=== PATIENT | female | born 1995 | race Caucasian/White ===

== ENCOUNTER 2024-03-27 08:00 | Outpatient (CLI) | payer OTHER ==
[2024-03-27 18:24] LABS: BILIRUBIN,URINE NEGATIVE (NEGATIVE); GLUCOSE, URINE (UA) NEGATIVE (NEGATIVE); KETONES,URINE (UA) NEGATIVE (NEGATIVE); LEUKOCYTE ESTERASE, URINE NEGATIVE (NEGATIVE); NITRITE,URINE NEGATIVE (NEGATIVE); OCCULT BLOOD,URINE NEGATIVE (NEGATIVE); PROTEIN,URINE NEGATIVE (NEGATIVE); UROBILINOGEN,URINE 0.2 (NORMAL) E.U./dL (NORMAL)
[2024-03-27 18:31] LABS: CLARITY,URINE CLEAR (CLEAR)
[2024-03-27 18:43] LABS: BACTERIA,URINE Few /HPF (None Seen); RBC,URINE 0-5 /HPF (0-5); SQUAMOUS EPITHELIAL CELL,UR RARE Squamous (<= Few); WBC,URINE 0-3 /HPF (0-5)
== END 2024-03-27 23:59 | disposition home or self-care (01) ==
LOC: LAB.WC 08:00
PROVIDERS: ATTEND Obstetrics & Gynecology
DX: Z34.90 Encounter for supervision of normal pregnancy, unspecified, unspecified trimester (principal)
CPT/HCPCS: 81001; 87086

== ENCOUNTER 2024-04-09 17:11 | Outpatient (CLI) | payer OTHER ==
--- NOTE | 2024-04-10 23:22 | Ultrasound Report ---
PROCEDURE: OB 1st Trimester INDICATIONS: POSITIVE TEST OUTSIDE/PRIOR DATING DATA: Last menstrual period (LMP): 02/06/2024. LMP-based estimated date of delivery (KAYLEE): 11/12/2024. First dating scan (date and location): 04/09/2024. Estimated date of delivery (KAYLEE) from first dating scan: 11/12/2024. TECHNIQUE: Real-time scanning was performed of the fetus and maternal pelvic organs, with image documentation. COMPARISON: None. FINDINGS: Intrauterine gestational sac present. Embryo: Single living gestation with crown-rump length of 22.7 mm corresponding to 9 weeks 0 day +/- 6 day gestation. A normal yolk sac is seen. Heart rate: 167 bpm. Other: Thin flat simple subchorionic fluid collection measuring 2.0 x 0.7 x 3.5 cm encompassing less than 10% of the sac circumference. Measurement variability in dating: +/- 4 weeks by LMP, +/- 7 days by mean sac diameter (use before 6 weeks gestation if crown-rump length not able to be measured), +/- 5 days by crown-rump length (6-12 weeks gestation). Maternal organs: Ovaries appear within normal limits. The cervix is closed. IMPRESSION: Single living intrauterine with sonographic gestational age of 9 weeks, 0 days +/- 6 days. This concordant with clinical dates. Reviewed by: Lennie Wheeler MD on 04/10/2024 11:21 PM PDT Approved by: Lennie Wheeler MD on 04/10/2024 11:21 PM PDT Station ID: [id number]
== END 2024-04-09 17:12 | disposition home or self-care (01) ==
LOC: DI 17:11
PROVIDERS: ATTEND Obstetrics & Gynecology
DX: Z34.91 Encounter for supervision of normal pregnancy, unspecified, first trimester (principal)

== ENCOUNTER 2024-05-01 08:00 | Outpatient (CLI) | payer OTHER ==
[2024-05-01 22:28] LABS: CHLAMYDIA TRACHOMATIS DNA NEGATIVE (NEGATIVE); NEISSERIA GONORRHOEAE DNA NEGATIVE (NEGATIVE); TRICHOMONAS VAGINALIS DNA NEGATIVE (NEGATIVE)
== END 2024-05-01 23:59 | disposition home or self-care (01) ==
LOC: LAB.WC 08:00
PROVIDERS: ATTEND Obstetrics & Gynecology
DX: Z11.3 Encounter for screening for infections with a predominantly sexual mode of transmission (principal)
CPT/HCPCS: 87491; 87591; 87661

== ENCOUNTER 2024-05-04 10:47 | Outpatient (CLI) | payer OTHER ==
[2024-05-04 18:04] LABS: BASOPHILS % (AUTO) 0.5 %; EOSINOPHILS # (AUTO) 0.1 10^3/uL (0.0-0.7); EOSINOPHILS % (AUTO) 1.3 %; HCT - HEMATOCRIT 40.2 % (37.0-47.0); HGB - HEMOGLOBIN 13.1 g/dL (12.0-16.0); LYMPHOCYTES % (AUTO) 15.7 %; MEAN CORPUSCULAR HEMOGLOBIN 30.3 pg (27.0-31.0); MEAN CORPUSCULAR HGB CONC 32.6 g/dL (32.0-36.0); MEAN CORPUSCULAR VOLUME 92.8 fL (81.0-99.0); MEAN PLATELET VOLUME 9.6 fL (7.9-10.8); MONOCYTES # (AUTO) 0.4 10^3/uL (0.0-1.0); MONOCYTES % (AUTO) 5.6 %; NEUTROPHILS # (AUTO) 4.8 10^3/uL (1.5-6.6); NEUTROPHILS % (AUTO) 76.7 %; PLT - PLATELET COUNT 224 10^3/uL (130-450); RED BLOOD COUNT 4.33 10^6/uL (4.20-5.40); RED CELL DISTRIBUTION WIDTH 13.2 % (12.0-15.0); WHITE BLOOD COUNT 6.3 x10^3/uL (4.8-10.8)
[2024-05-05 05:13] LABS: HBsAG SCREEN Negative (Negative); HIV SCREEN 4TH GENERATION Non Reactive (Non Reactive)
[2024-05-05 08:11] LABS: RPR Non Reactive (Non Reactive)
[2024-05-05 09:10] LABS: VARICELLA-ZOSTER AB IGG 1953 index (Immune >165)
[2024-05-06 01:08] LABS: HCV AB Non Reactive (Non Reactive)
== END 2024-05-04 10:48 | disposition home or self-care (01) ==
LOC: LAB.N 10:47
PROVIDERS: ATTEND Obstetrics & Gynecology
DX: Z34.90 Encounter for supervision of normal pregnancy, unspecified, unspecified trimester (principal)
CPT/HCPCS: 36415; 85025; 86592; 86762; 86787; 86803; 86850; 86900; 86901; 87340; 87389

== ENCOUNTER 2024-05-05 11:19 | Outpatient (CLI) | payer OTHER | END 2024-05-05 11:20 | disposition home or self-care (01) | LOC: LAB 11:19 | PROVIDERS: ATTEND Obstetrics & Gynecology | DX: Z34.90 Encounter for supervision of normal pregnancy, unspecified, unspecified trimester (principal) ==

== ENCOUNTER 2024-05-29 13:36 | Outpatient (CLI) | payer OTHER ==
[2024-06-01 13:10] LABS: AFP MOM 1.06 (.); GEST. AGE ON COLLECTION DATE 16.1 weeks (.); INSULIN DEP DIABETES No (.); MATERNAL AGE AT EDD 30.6 yr (.); MULTIPLE GESTATION No (.); OPEN SPINA BIFIDA RISK 1 IN 10000 (.); RACE Caucasian (.); RESULTS Report (.); TEST RESULTS *Screen Negative* (.); WEIGHT 112 lbs (.)
== END 2024-05-29 13:37 | disposition home or self-care (01) ==
LOC: LAB 13:36
PROVIDERS: ATTEND Obstetrics & Gynecology
DX: Z36.0 Encounter for antenatal screening for chromosomal anomalies (principal)
CPT/HCPCS: 36415; 82105

== ENCOUNTER 2024-07-08 19:06 | Outpatient (CLI) | payer OTHER ==
--- NOTE | 2024-07-09 17:06 | Ultrasound Report ---
PROCEDURE: OB Anatomy Scan INDICATIONS: SUPERVISION OF OUTSIDE/PRIOR DATING DATA: Last menstrual period (LMP): 02/06/2024. LMP-based estimated date of delivery (KAYLEE): 11/12/2023. First dating scan (date and location): 04/09/2024. Estimated date of delivery (KAYLEE) from first dating scan: 11/12/2024. The below data below was generated using the working KAYLEE of 11/12/2024 TECHNIQUE: Real-time scanning was performed of the fetus, with image documentation and biometric measurements. Endovaginal scanning: Not performed. COMPARISON: 04/09/2024 FINDINGS: General: A single living intrauterine gestation is present. Presentation: Variable Placenta: Placental position is anterior, without previa. Amniotic fluid index: 17.4 cm, which is at 75.1% within normal limits for gestational age. heart rate: 132 beats per minute. Maternal cervical canal: Closed and measures 4.9 cm long; normal length is 2.5 cm or more. biometrics: Biparietal diameter: 5.27 cm, 22 weeks, 0 day. 53.4% Head circumference: 19.9 cm, 22 weeks, 0 day, 47.4% Abdominal circumference: 17.2 cm, 22 weeks, 1 day, 52.3% Femur length: 3.59 cm, 21 weeks, 3 days, 24.2% Estimated gestational age from initial scan: 21 weeks, 6 days Composite gestational age from present scan: 22 weeks, 0 day Estimated weight and percentile: 454.8 g, 62.7 % Measurement variability in biometric dating: +/- 10 days from 12-20 weeks gestation, +/- 2 weeks from 20-30 weeks gestation, +/- 3 weeks at 30 weeks gestation or later. Anatomic survey: Neuro: Ventricles are normal at less than 10 mm. Cisterna magna is normal at 3-11 mm. Cerebellum i s normal in size and morphology. Nuchal skin fold: Normal at less than 6 mm between 14 and 20 weeks gestational age. Face: Nose and lips, facial profile are normal. Spine: No evidence for spina bifida. Heart: 4-chambered heart is present, with normal ventricular outflow tracts. Diaphragm: Diaphragm is intact. Stomach: Left-sided stomach is present. Kidneys: No hydronephrosis. Normal is less than 5 mm in 2nd trimester, less than 7 mm in 3rd trimester. Cord: 3 vessel cord has orthotopic insertion. Bladder: Normal in size. Extremities: All 4 extremities are visualized. IMPRESSION: 1. Single live intrauterine gestation with fetus in variable presentation. heart rate is 132 bp m. 2. Normal amount of amniotic fluid with ELSA at 75.1%. 3. Normal growth with estimated weight at 62.7%. 4. Normal anatomic survey. Reviewed by: Abilio Alvarez MD on 07/09/2024 5:05 PM PDT Approved by: Abilio Alvarez MD on 07/09/2024 5:05 PM PDT Station ID: [id number]
== END 2024-07-08 19:07 | disposition home or self-care (01) ==
LOC: DI 19:06
PROVIDERS: ATTEND Obstetrics & Gynecology
DX: Z34.90 Encounter for supervision of normal pregnancy, unspecified, unspecified trimester (principal)

== ENCOUNTER 2024-11-13 20:03 | Inpatient (IN) ==
[2024-11-13] MEDS ORDERED: METOCLOPRAMIDE 10 MG TABLET PO PRN (20:36)
[2024-11-13] MEDS ORDERED: METOCLOPRAMIDE 10 MG/2 ML VIAL IVP PRN ×2 (20:36→23:09)
[2024-11-13] MEDS ORDERED: miSOPROStoL 200 MCG TABLET PR PRN (20:36)
[2024-11-13] MEDS ORDERED: TRANEXAMIC ACID IN NACL 1,000 MG/100 ML BAG IV PRN (20:36)
[2024-11-13] MEDS ORDERED: NIFEdipine 10 MG CAPSULE PO PRN (20:36)
[2024-11-13] MEDS ORDERED: miSOPROStoL 200 MCG TABLET BC PRN (20:36)
[2024-11-13] MEDS ORDERED: fentaNYL 100 MCG/2 ML VIAL IVP PRN (20:36)
[2024-11-13] MEDS ORDERED: METHYLERGONOVINE 0.2 MG/ML VIAL IM PRN (20:36)
[2024-11-13] MEDS ORDERED: hydrALAZINE INJ 20 MG/ML VIAL IVP PRN (20:36)
[2024-11-13] MEDS ORDERED: SODIUM CHLORIDE FLUSH 0.9% 10 ML SYRINGE IVP PRN (20:36)
[2024-11-13] MEDS ORDERED: lidocaine 1% 20 ML MDV ID PRN (20:36)
[2024-11-13] MEDS ORDERED: TERBUTALINE 1 MG/ML VIAL SUBQ PRN (20:36)
[2024-11-13] MEDS ORDERED: OXYTOCIN 10 UNIT/ML VIAL IM PRN (20:36)
[2024-11-13] MEDS ORDERED: LABETALOL 20 MG/4 ML SYRINGE IVP PRN ×3 (20:36)
[2024-11-13] MEDS ORDERED: diphenhydrAMINE INJ 50 MG/ML VIAL IVP PRN ×2 (20:36→23:09)
[2024-11-13] MEDS: CALCIUM CARBONATE CHEW 500 MG TABLET PO PRN (21:04)
[2024-11-13 21:13] LABS: BASOPHILS % (AUTO) 0.2 %; EOSINOPHILS # (AUTO) 0.1 10^3/uL (0.0-0.7); EOSINOPHILS % (AUTO) 0.5 %; HCT - HEMATOCRIT 39.7 % (37.0-47.0); HGB - HEMOGLOBIN 13.4 g/dL (12.0-16.0); LYMPHOCYTES % (AUTO) 10.1 %; MEAN CORPUSCULAR HGB CONC 33.8 g/dL (32.0-36.0); MEAN CORPUSCULAR VOLUME 94.7 fL (81.0-99.0); MEAN PLATELET VOLUME 10.5 fL (7.9-10.8); MONOCYTES # (AUTO) 0.6 10^3/uL (0.0-1.0); MONOCYTES % (AUTO) 6.3 %; NEUTROPHILS # (AUTO) 8.1 10^3/uL (1.5-6.6); NEUTROPHILS % (AUTO) 82.3 %; PLT - PLATELET COUNT 180 10^3/uL (130-450); RED BLOOD COUNT 4.19 10^6/uL (4.20-5.40); RED CELL DISTRIBUTION WIDTH 12.5 % (12.0-15.0); WHITE BLOOD COUNT 9.8 x10^3/uL (4.8-10.8)
[2024-11-13 21:25] LABS: ALBUMIN 3.6 g/dL (3.2-5.5); ALBUMIN/GLOBULIN RATIO 1.5 (1.0-2.2); BILIRUBIN,TOTAL 0.3 mg/dL (0.2-1.0); CALCIUM 9.2 mg/dL (8.5-10.3); CREATININE 0.6 mg/dL (0.6-1.3)
[2024-11-13] MEDS: LACTATED RINGERS 1,000 ML IV PRN (21:52)
[2024-11-13] MEDS ORDERED: LIDOCAINE 2%-EPI 1:100000 20 ML MDV ONE (22:04)
[2024-11-13] MEDS ORDERED: ROPIVACAINE 0.2% 200 MG/100 ML BAG EP ONE (22:05)
[2024-11-13] MEDS: ONDANSETRON ODT 4 MG TABLET PO PRN (22:06)
--- NOTE | 2024-11-13 22:22 | HISTORY & PHYSICAL EXAMINATION ---
Admit History Visit Reason Visit Reason: Contractions : 1 Parity: 0 Care: positive [facility] Complications This : positive None Smoking Status: Never smoker Mother's Labs Mother's Blood Type: positive O Mother's RH: positive Negative GBS: positive Group B Step Negative Rubella Status: positive Immune Other Maternal History Other Maternal History: Growth US 10/07 23.9% Pre- Weight:111.0 BMI: 19.73 Blood type: O- Rhogam given 09/09 Antibody: Negative CBC: PLT 224 HCT 40.2 HGB 13.1 RUB: Immune VZV: Immune HBsAg: Negative HepC: NR RPR/AB-EIA: NR HIV: NR PAP:10/21/21 - normal, Due GC/CT:05/01 Negative HSV:Denies in self and parter Genetic testing: Maternit 21 neg, AFP neg Covid: Virus, declines 07/24 Flu: declines, 07/24 FAS:WNL Placenta: anterior without previa Cord: 3VC ELSA: WNL EFW: 454.8g 62.7%ile 50gm OGCT: 120 3HR GTT: TDAP: 08/21/2024 Breast Pump: 08/21/24 Antibody screen: drawn 08/21. Rhogam given 09/09 3rd trimester PLT 192 HCT 33.9 HGB 11.6 RSV: 09/18 GBS:negative HPI Diagnosis/Indication for NST: Post-dates gestation Current : Vital Signs Temperature 36.8 C 11/13/24 20:15 Pulse Rate 75 11/13/24 20:15 Respiratory Rate 16 11/13/24 20:15 Blood Pressure 132/87 H 11/13/24 20:15 NST Procedure NST Procedure: EFM: 130s, moderate variability, positive 15x15 accelerations, no decelerations Bee: contractions q2m Performed and read 11/13/24 Results and Plan Plan: Plan for admission due to active labor 4cm, desires epidural Meds/Allgy Home Medications Ambulatory Orders Medication Instructions Recorded Confirmed vits no.126-ferrous fum tab PO .DAILY 08/12/24 11/09/24 28 mg iron-folic acid 800 mcg tablet (Classic ) calcium carbonate (Tums) 200 mg PO BID 08/21/24 11/09/24 psyllium husk 0.52 gram capsule 0.52 g PO QDAY 10/01/24 11/09/24 (Fiber Laxative (psyllium husk)) ondansetron HCl 4 mg tablet 4 mg PO Q6H 10/09/24 11/09/24 Allergies Allergies Allergy/AdvReac Type Severity Reaction Status Date / Time No Known Drug Allergies Allergy Verified 10/28/24 10:43 PFSH Medical History Medical History (Updated 11/13/24 @ 22:36 by Nazanin Lo DO) Tinea pedis Family History Family History (Updated 08/12/24 @ 13:28 by Ruth Ardon, JEAN MARIE) Mother Thyroid disease Father High cholesterol Uncle Cancer Maternal grandfather Diabetes Paternal grandmother Cancer Maternal grandmother Alzheimers disease Social History Social History (Updated 08/12/24 @ 13:29 by Ruth Ardon RN) Smoking Status: Never smoker Second hand tobacco smoke exposure: Yes Do you dip or chew tobacco?: No Do you vape?: No Living arrangement: At home Level: Independent ETOH Use: None Substance Use: denies use Are you sexually active?: Yes Control Method: None Occupation: [employer] Review of Systems Status of ROS: 10 or more systems reviewed and unremarkable except as noted in history and below Physical Abdominal Exam Vital Signs: Temp Pulse Resp BP 36.8 C 75 16 132/87 H 11/13/24 20:15 11/13/24 20:15 11/13/24 20:15 11/13/24 20:15 Contraction Intensity: positive Moderate Uterine Resting Tone: positive Soft Monitoring Heart Rate Baseline: 130s Strip Review: positive Category I Presentation Presentation: positive Vertex (EFW 3200g, placenta anterior) Vaginal Exam Membranes: positive Membranes intact Dilation (in cm): 4 Plan for Labor Plan For Labor I expect patient to be DC'd or transferred within 96 hours.: Yes Conclusion/Plan Problem List (1) 40 weeks gestation of : (2) Rh negative state in antepartum period: (3) Post-dates : Qualifiers: Post-term type: 40-42 weeks gestation Qualified Code(s): O 48.0 - Post-term Plan 29yo at 40.1w by LMP consistent with 9w US admitted in active labor - Admit - CBC, T&S - May have epidural - Anticipate complicated by RH neg Lab Results Lab results reviewed: Yes 11/13/24 20:45 11/13/24 20:45
[2024-11-13] MEDS: SODIUM CHLORIDE FLUSH 0.9% 10 ML SYRINGE IVP SCH (23:08)
[2024-11-13] MEDS ORDERED: ONDANSETRON 4 MG/2 ML VIAL IVP PRN (23:09)
[2024-11-13] MEDS ORDERED: NALOXONE 0.4 MG/ML VIAL IVP PRN (23:09)
[2024-11-13] MEDS ORDERED: NALBUPHINE 10 MG/ML AMP IVP PRN (23:09)
--- NOTE | 2024-11-13 23:09 | ANESTHESIA PROCEDURE NOTE ---
Pre-Anesthesia VS, & Labs Diagnosis Surgical Diagnosis:: active labor Procedure Procedure: labor epidural Vitals Vital Signs: Temp Pulse Resp BP 36.8 C 75 16 132/87 H 11/13/24 20:15 11/13/24 20:15 11/13/24 20:15 11/13/24 20:15 NPO NPO: Other Is Patient ?: Yes Lab Results Current Lab Results: Laboratory Tests 11/13/24 20:45: WBC 9.8, RBC 4.19 L, Hgb 13.4, Hct 39.7, MCV 94.7, MCH 32.0 H, MCHC 33.8, RDW 12.5, Plt Count 180, MPV 10.5, Neut # (Auto) 8.1 H, Lymph # (Auto) 1.0 L, Bond # (Auto) 0.6, Eos # (Auto) 0.1, Baso # (Auto) 0.0, Absolute Nucleated RBC 0.00, Nucleated RBC % 0.0, Sodium 134 L, Potassium 4.0, Chloride 107, Carbon Dioxide 22, Anion Gap 5.0 L, BUN 13, Creatinine 0.6, Estimated GFR (MDRD) 117, Glucose 94, Calcium 9.2, Total Bilirubin 0.3, AST 17, ALT 9 L, A lkaline Phosphatase 143 H, Total Protein 6.0 L, Albumin 3.6, Globulin 2.4, Albumin/Globulin Ratio 1.5, Blood Type O NEGATIVE, Antibody Screen POSITIVE 11/13/24 20:45 11/13/24 20:45 Meds/Allgy Home Medications Ambulatory Orders Medication Instructions Recorded Confirmed vits no.126-ferrous fum tab PO .DAILY 08/12/24 11/09/24 28 mg iron-folic acid 800 mcg tablet (Classic ) calcium carbonate (Tums) 200 mg PO BID 08/21/24 11/09/24 psyllium husk 0.52 gram capsule 0.52 g PO QDAY 10/01/24 11/09/24 (Fiber Laxative (psyllium husk)) ondansetron HCl 4 mg tablet 4 mg PO Q6H 10/09/24 11/09/24 Allergies Allergies Allergy/AdvReac Type Severity Reaction Status Date / Time No Known Drug Allergies Allergy Verified 10/28/24 10:43 [facility] Medical History Medical History (Updated 11/13/24 @ 22:36 by Nazanin Lo DO) Kelly ortiz Family History Family History (Updated 08/12/24 @ 13:28 by Ruth Ardon RN) Mother Thyroid disease Father High cholesterol Uncle Cancer Maternal grandfather Diabetes Paternal grandmother Cancer Maternal grandmother Alzheimers disease Social History Social History (Updated 08/12/24 @ 13:29 by Ruth Ardon RN) Smoking Status: Never smoker Second hand tobacco smoke exposure: Yes Do you dip or chew tobacco?: No Do you vape?: No Living arrangement: At home Level: Independent ETOH Use: None Substance Use: denies use Are you sexually active?: Yes Control Method: None 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 Exam (Expanded) Exam General: Alert Dental: WNL Mouth Opening: Greater than 4 Fingerbreadths Neck Mobility: Normal Mallampati classification: I Thyromental Distance: greater than 6 cm Respiratory: Lungs clear Cardiovascular: Regular rate Plan Problem List (1) 40 weeks gestation of : (2) Rh negative state in antepartum period: (3) Post-dates : Qualifiers: Post-term type: 40-42 weeks gestation Qualified Code(s): O 48.0 - Post-term Plan 29yo at 40.1w by LMP consistent with 9w US admitted in active labor - Admit - CBC, T&S - May have epidural - Anticipate complicated by RH neg Plan Anesthesia Type: Epidural Consent for Procedure(s) Verified and Reviewed: Yes Code Status: Attempt Resuscitation ASA Classification ASA classification: 2-Mild systemic disease Is this case an emergency?: No
[2024-11-13] MEDS: ePHEDrine 50 MG/ML VIAL IVP PRN (23:29)
[2024-11-14] MEDS: ROPIVACAINE 0.2% 200 MG/100 ML BAG EP PRN (06:08)
[2024-11-14] MEDS: OXYTOCIN/SODIUM CHLORIDE 500 ML IV SCH (08:45)
--- NOTE | 2024-11-14 09:16 | PROVIDER PROGRESS NOTE ---
Labor Progress Note Uterine Monitoring Uterine Monitoring Mode: positive External toco Contraction Frequency (min/apart): 4 Contraction Intensity: positive Mild to moderate Uterine Resting Tone: positive Soft Monitoring Monitor Mode: positive External ultrasound Heart Rate Baseline: 120 Heart Rate Variability: positive Moderate (6-25 bmp) Accelerations: positive Present, 15x15 Decelerations: positive None Strip Review: positive Category I Vaginal Exam Dilation (in cm): 7 Effacement (%): 90 Station: 0 Labor Progress Note Labor Progress Note/Additional Text: 29yo at 40.2w admitted in labor - Received epidural after admission but required replacement as she was not comfortable. She had relief of contractions after second epidural and was able to rest. Starting to feel more pressure. - Pitocin started as contractions spaced - Plan for AROM when there is an effective contraction pattern - Anticipate
[2024-11-14] MEDS: OXYTOCIN/SODIUM CHLORIDE 500 ML IV PRN (10:58)
[2024-11-14] MEDS ORDERED: SIMETHICONE CHEW 80 MG TABLET PO PRN (11:24)
[2024-11-14] MEDS ORDERED: OXYTOCIN/SODIUM CHLORIDE 500 ML IV PRN (11:24)
[2024-11-14] MEDS: LACTATED RINGERS 500 ML IV ONE (11:28)
[2024-11-14] MEDS: FAMOTIDINE 20 MG/2 ML VIAL IVP SCH (11:29)
--- NOTE | 2024-11-14 11:36 | DELIVERY NOTE ---
Delivery Note Labor Labor: positive Spontaneous and Augmented by oxytocin (Pitocin started after 7cm) Infant Delivery Method Infant Delivery Method: positive Spontaneous vaginal delivery Presentation Presentation: positive Vertex and ANDRIY - right occiput anterior Nuchal Cord Nuchal Cord: positive Present and Reduced (Reduced after delivery) Amniotic Fluid Description Amniotic Fluid Description: positive Clear (SROM at 10cm) Laceration Laceration: positive 2nd degree (perineal, repaired with 3-0 Vicryl in usual fashion) Suture Suture Type: positive Vicryl Suture Size: positive 3-0 Delivery Outcome Delivery Date: 11/14/24 Delivery Time: 10:49 Delivery Outcome: positive Livebirth : positive Placed in direct skin contact with mother, Suctioned, Bulb syringe, Stimulated and [place] used Rhodes sex: positive Female Cord Cord: positive 3 vessels Placenta Placenta: positive Intact and Spontaneous Estimated Blood Loss Estimated Blood Loss (in cc): 100 Post Delivery Events Post Delivery Events: positive No post delivery events Delivery Comments (Free Text/Narrative) Delivery Comments (Free Text/Narrative): Patient feeling pressure. 10/100/+2 with bulging bag. She pushed and SROM, clear fluid. Good pushing efforts. Head delivered ANDRIY. Nuchal cord noted (reduced after delivery). Shoulders and body delivered with ease. Baby girl placed on mother's abdomen. Delayed cord clamping. Placenta delivered spontaneously and intact, 3vc. Fundus firm. Vaginal and perineum inspected- second degree perineal laceration repaired in usual fashion wtih 3-0 Vicryl. Hemostasis. QBL 100cc. Tolerated procedures well. Family bonding at bedside.
[2024-11-14] MEDS: IBUPROFEN 800 MG TABLET PO SCH (13:25)
--- NOTE | 2024-11-14 13:34 | PHARMACY PROGRESS NOTE ---
Best Possible Medication History Admit Date and Time: 11/13/242035 Home Medications Medication Instructions Recorded Confirmed Type vits no.126-ferrous fum 1 tab PO .DAILY 08/12/24 11/14/24 History 28 mg iron-folic acid 800 mcg tablet (Classic ) calcium carbonate (Tums) 200 mg PO BID 08/21/24 11/14/24 History psyllium husk 0.52 gram capsule 0.52 g PO QDAY 10/01/24 11/14/24 History (Fiber Laxative (psyllium husk)) ondansetron HCl 4 mg tablet 4 mg PO Q6H 10/09/24 11/14/24 History famotidine 20 mg tablet 20 mg PO BID 11/14/24 11/14/24 History Processed by: Pharmacy Medications reviewed in ED?: No Medication History completed: Yes Patient Interview: Completed Secondary Source(s): Caregiver and Insurance records [facility] Statement: As the person ultimately responsible for medication therapy, providers are able to order a medication from an existing home medication list in [facility] via the "Reconcile Routine" prior to Confirmation of that medication by software support representative. Such practice is discouraged except when the physician, in their clinical judgment, deems that a medical need exists for a medication without regard to previous use.
[2024-11-14] MEDS: ACETAMINOPHEN 500 MG TABLET PO SCH (16:08)
[2024-11-14] MEDS: DOCUSATE SODIUM 100 MG CAPSULE PO SCH (21:10)
[2024-11-15] MEDS: ACETAMINOPHEN 500 MG TABLET PO PRN (02:55)
[2024-11-15 03:24] VITALS: O2SAT 99
--- NOTE | 2024-11-15 14:00 | Discharge Summary ---
"Discharge Summary Admit Date: 11/13/24 Discharge Date: 11/15/24 Discharging Provider: Polly Hoang MD Code Status: Attempt Resuscitation DIAGNOSES Admission Diagnoses: term in active labor. Discharge Diagnoses with Status of Each Condition: term delivered. HPI History of Present Illness: 29 yo woman with her first child. 40+ weeks. uncomplicated. presented in labor 4 cm dilated. CONSULTS | PROCEDURES Procedures: vaginal delivery with epidural anesthesia. HOSPITAL COURSE Hospital Course: She was 4 cm on admit. Received an epidural but it did not work well on one side. Second one did work well. she rested and woke up ready to push. She pushed for about 30 min to deliver her baby. 2nd degree lac repaired. baby vigorous from time of . 6 lb 10 oz. post course is unremarkable and they are discharged home on ppd #1. ALLERGIES Allergies Allergy/AdvReac Type Severity Reaction Status Date / Time No Known Drug Allergies Allergy Verified 10/28/24 10:43 MEDICATIONS Ambulatory Orders Medication Instructions Recorded Confirmed vits no.126-ferrous fum 1 tab PO .DAILY 08/12/24 11/14/24 28 mg iron-folic acid 800 mcg tablet (Classic ) calcium carbonate (Tums) 200 mg PO BID 08/21/24 11/14/24 psyllium husk 0.52 gram capsule 0.52 g PO QDAY 10/01/24 11/14/24 (Fiber Laxative (psyllium husk)) ondansetron HCl 4 mg tablet 4 mg PO Q6H 10/09/24 11/14/24 famotidine 20 mg tablet 20 mg PO BID 11/14/24 11/14/24 PHYSICAL EXAM AT DISCHARGE General Appearance: positive No acute distress Respiratory: positive No respiratory distress Cardiovascular: positive Regular rate & rhythm LABS 11/13/24 20:45 11/13/24 20:45 FOLLOW UP Follow Up: will have clinic call for an appt in a week or 2. TIME SPENT Time Spent in Discharge (Minutes): 15 Discharge Plan Discharge Patient Disposition: PRISON, Self Care Condition: Good Prescriptions: Continued famotidine 20 mg tablet 20 mg PO BID ondansetron HCl 4 mg tablet 4 mg PO Q6H Classic 28 mg iron- 800 mcg tablet 1 tab PO .DAILY calcium carbonate [Tums] 200 mg calcium (500 mg) tablet,chewable 200 mg PO BID psyllium husk [Fiber Laxative (psyllium husk)] 0.52 gram capsule 0.52 g PO QDAY Activity Restrictions: pelvic rest for 6 weeks. Diet: Regular Print Language: Honduran Patient Instructions: Vaginal"
[2024-11-15 14:13] VITALS: BP 122/73; TEMP 97.9
--- NOTE | 2024-11-15 14:22 | Labor Flowsheet ---
Labor Flowsheet Datetime Report Generated by CPN: 11/15/2024 14:21 Datetime: 11/15/2024 11:45 VITAL SIGNS NBP Sys/Nubia/Mean (mmHg): 122 : 73 : 84 Pulse: 69 Datetime: 11/14/2024 13:00 Stage of : Datetime: 11/14/2024 12:42 Temperature (C): 37.0 Datetime: 11/14/2024 10:45 UTERINE ACTIVITY Monitor Mode: External Frequency (min): 3-4 Quality: Strong Duration (sec): 70-120 Pattern: Normal: <= 5 Contractions in 10 Minutes Resting Tone (Palpate): Relaxed Pitocin Checklist: At Least 1 Acceleration of 15 bpm x 15 Seconds in 30 Minutes or Adequate Variabi lity; No More than 1 Late Deceleration Occurred in Past 30 Minutes; No More than 2 Variable Decelerat ions > 60 Seconds in Duration and decreasing >60 bpm in 30 minutes; No More than 5 Uterine Contractio ns in 10 Minutes for any 20 Minute Interval; Uterus Palpates Soft between Contractions ASSESSMENT A Monitor Mode: External US FHR Baseline Rate : 130 Variability: Moderate 6-25 bpm Accelerations: None Decelerations: Variable Category: Category II LaborFlag: Labor Datetime: 11/14/2024 10:22 Membranes Rupture Method: Spontaneous Amniotic Fluid Color: Clear Amniotic Fluid Amount: Large STAGE 2 Stage 2 Comments: pushing started Datetime: 11/14/2024 10:14 VAGINAL EXAM Dilatation (cm): 10.0 Effacement (%): 100 Station: 2 Datetime: 11/14/2024 09:45 MEDICATIONS Pitocin (milliunits): Increased to @ (Annotations: 6) Datetime: 11/14/2024 08:23 Patient Position/Activity: Right Lateral Datetime: 11/14/2024 07:56 Patient Care Comments: rigo w left tilt Datetime: 11/14/2024 07:30 Exam by: Lynnette H RNC Vaginal Exam Comments: bulging bag Provider Notified (Name): Dr Lo Communication Comments: notified of SVE, FHR cat1, pt status. provider to come to bedside Datetime: 11/14/2024 07:15 SpO2 (%): 95 Datetime: 11/14/2024 07:00 MATERNAL ASSESSMENT Level of Consciousness: Alert Headache: Denies Breath Sounds, Left: Clear and Equal Datetime: 11/14/2024 06:31 FHR Baseline Changes: No Baseline Change Pain Presence: Intermittent Pain Type: Cramping Pain Location: Abdomen Pain Relief Measures: Epidural Given Pain Coping: Talking Through Contractions Pain Assessment Comments: epidural bolus PATIENT CARE Oxygen Method: Room Air Datetime: 11/14/2024 06:10 Temperature Route: Axillary Datetime: 11/14/2024 05:58 PAIN Pain Scale: 1 Pain Goal: 2 ANESTHESIA Anesthesia Plans: Epidural Anesthesia Level Check: T6- Xyphoid COMMUNICATION Communication: RN at Bedside; RN Reviewed Strip Datetime: 11/14/2024 05:09 Comfort Measures: Family Support Datetime: 11/14/2024 05:06 I/O Interventions: Clear Liquids Given Datetime: 11/14/2024 04:04 Monitor Interventions for UA: [place] Adjusted Datetime: 11/14/2024 03:20 Epidural Procedure Other: Pump Started Datetime: 11/14/2024 03:15 Epidural Procedure: Test Dose Datetime: 11/14/2024 02:59 Respirations: 16 Datetime: 11/14/2024 02:52 Anesthesia Comments: replace epidual Datetime: 11/14/2024 02:08 Vaginal Bleeding: Normal Show Cervix, Consistency: Soft Cervix, Position: Anterior Datetime: 11/14/2024 01:51 Comments: monitor changed to external US Datetime: 11/14/2024 01:31 Notification Reason: Status Update; Status; Labor Status Datetime: 11/13/2024 23:38 Actions for Decelerations: Side to Side; IV Bolus; Blood Pressure Magnesium/Antihypertensives: Ephedrine IV (mg) @ 5 Datetime: 11/13/2024 23:02 Membranes Ruptured Date/Time: 11/14/2024 10:22 Datetime: 11/13/2024 22:37 Provider Reviewed Strip: Yes Datetime: 11/13/2024 22:17 PROCEDURE TIME OUT Procedure Verify: Correct Patient Position Epidural Positioning: Sitting Datetime: 11/13/2024 21:52 Medication Comments: lactated ringers @125ML/HR Datetime: 11/13/2024 21:22 Breath Sounds, Right: Clear and Equal TEACHING Instructional Method: Verbal Plan of Care: Plan of Care Discussed; Vaginal Delivery Unit Routine: [place] to Room; Call Guillaume; Bed; Unit Personnel Labor/Induction: Labor Stages Pain Management: Epidural Related: Hydration Datetime: 11/13/2024 21:07 Nausea/Vomiting: Denies RUQ Epigastric Pain: Denies
== END 2024-11-15 13:00 | disposition home or self-care (01) | DRG 807 ==
LOC: WFO 20:03 → FBP 20:05
PROVIDERS: ADMIT Obstetrics & Gynecology; ATTEND Obstetrics & Gynecology
DX: Z3A.40 40 weeks gestation of pregnancy; O48.0 Post-term pregnancy; O70.1 Second degree perineal laceration during delivery; Z37.0 Single live birth